=== PATIENT | female | born 1955 | race Caucasian/White ===

== ENCOUNTER 2018-09-12 09:16 | Emergency (ER) | payer OTHER ==
[2018-09-12 09:21] VITALS: BMI 29.2
[2018-09-12 09:22] VITALS: BP 142/67; PULSE 61; RESP 17; TEMP 98.6; O2SAT 99
[2018-09-12] MEDS ORDERED: Piperacillin/Tazobact 3.375 GM in Sodium Chloride 0.9% 100 ML IVPB STA (09:55)
--- NOTE | 2018-09-12 09:59 | ED PDOC ---
HPI: General Adult Time Seen by Provider: 09/12/18 09:43 Chief Complaint (Provider): facial pain redness History Per: Patient History/Exam Limitations: no limitations Current Symptoms Are (Timing): Still Present Severity: Moderate Location Of Discomfort (Image): 1 - pain redness Recently: Treated By A Physician Additional Complaint(s): 62yo female states trip/fall while walking dog last saturday, scraped R side of face on concrete, went to urgent care just recommend neosporin, redness worsened with small bullae developing, went to another physician started amoxil and neosporin, now progressing and enlarging on face, R eye has some redness. Denies fever, headache, change vision or pain behind eye. No weakness, denies prior skin infections, nondiabetic. Denies dental pain although she feels her taste of salt is different today. Past Medical History Reviewed: Historical Data, Nursing Documentation, Vital Signs Vital Signs: Last Vital Signs Temp 98.6 F 09/12/18 09:21 Pulse 61 09/12/18 09:21 Resp 17 09/12/18 09:21 BP 142/67 09/12/18 09:21 Pulse Ox 99 09/12/18 09:21 - Medical History PMH: HTN - Surgical History Other surgeries: breast augmentation - Social History Current smoker - smoking cessation education provided: No - Allergies Allergies/Adverse Reactions: Allergies Allergy/AdvReac Type Severity Reaction Status Date / Time Sulfa (Sulfonamide Allergy Verified 09/12/18 09:52 Antibiotics) Review of Systems ROS Statement: Except As Marked, All Systems Reviewed And Found Negative Constitutional: Negative for: Fever, Chills Eyes: Positive for: Conjunctivae Inflammation, Eyelid Inflammation, Redness. Negative for: Vision Change ENT: Positive for: Other (facial pain redness and sweling). Negative for: Ear Pain, Nose Discharge, Throat Pain Cardiovascular: Negative for: Chest Pain Respiratory: Negative for: Shortness of Breath Musculoskeletal: Negative for: Neck Pain Skin: Positive for: Rash, Lesions. Negative for: Jaundice, Bruising Neurological: Negative for: Weakness, Headache Physical Exam - Physical Exam Appears: Positive for: Well, Non-toxic Head Exam: Positive for: ATRAUMATIC Skin: Positive for: Normal Color Eye Exam: Positive for: Other (mild R eye injection no pain on ROM eyes, minimal periorbital edema) ENT: Positive for: Other (R face with large abrasion with honey crusted lesions and erythema, mild weeping to area, no fluctuance) Neck: Positive for: Painless ROM Cardiovascular/Chest: Negative for: Tachycardia Neurological/Psych: Positive for: Awake, Alert, Normal Tone. Negative for: Lethargic - ECG O2 Sat by Pulse Oximetry: 99 Medical Decision Making Medical Decision Making: workup initiated for facial cellulitis with failure outpatient therapy. Give dose Zosyn, check labs. She declined pain medicine. Disposition - Clinical Impression Clinical Impression: Facial cellulitis - Patient ED Disposition Is Patient to be Admitted: Transfer of Care - Disposition Disposition: Transfer of Care Disposition Time: 10:03 Condition: STABLE Patient Signed Over To: Eliezer Chaves
[2018-09-12] MEDS ORDERED: Piperacillin/Tazobact 3.375 gm Inj IVPB ONE (10:37)
[2018-09-12 10:53] LABS: BASO # 0.1 K/uL (0.0-0.2); BASO % 0.8 % (0.0-2.0); EOS # 0.2 K/uL (0.0-0.7); EOS % 2.6 % (0.0-4.0); LYMPH # 1.3 K/uL (1.0-4.3); LYMPH % 16.5 % (20.0-40.0); MEAN CELL VOLUME 85.5 fl (81.0-99.0); MEAN CORPUSCULAR HEMOGLOBIN 27.8 pg (27.0-31.0); MEAN CORPUSCULAR HGB CONC 32.5 g/dL (33.0-37.0); MEAN PLATELET VOLUME 8.4 fl (7.2-11.7); MONO # 0.7 K/uL (0.0-0.8); MONO % 8.4 % (0.0-10.0); NEUT # 5.6 K/uL (1.8-7.0); NEUT % 71.7 % (50.0-75.0); RBC 5.04 Mil/uL (3.80-5.20); RED CELL DISTRIBUTION WIDTH 14.1 % (11.5-14.5); WHITE BLOOD COUNT 7.8 K/uL (4.8-10.8)
== END 2018-09-12 12:15 | disposition home or self-care (01) ==
LOC: H.ER 09:16
DX: L03.211 Cellulitis of face (principal)
CPT/HCPCS: 85025; 96374; 99282; J2543